=== PATIENT | female | born 1950 | race Caucasian/White ===

== ENCOUNTER → 2019-01-22 | Outpatient (CLI) | payer MEDICARE, OTHER ==
[2014-10-10 09:05] VITALS: BMI 32.1
[~2019-01-22] MED LIST: CELE100C79 PO; ESCI20TA38 PO; ESOM20CA31 PO; HYDR-389 PO; RIV10 PO; RIVA15TA PO; cholesterol PO
--- NOTE | 2019-01-23 14:37 | RADIOLOGY IMAGING REPORT ---
FACILITY: [facility] PATIENT NAME: RICKEY OWENS : [id number] MR: [id number] V: [id number] EXAM DATE: [id number] ORDERING PHYSICIAN: NICOLAS HERNANDEZ TECHNOLOGIST: Gina Colon PROCEDURE: BILATERAL DIGITAL SCREENING MAMMOGRAM WITH CAD ASSISTED INTERPRETATION & 3D TOMOSYNTHESIS. REASON FOR STUDY: Screening. FAMILY HISTORY OF BREAST CANCER: None. BREAST PROCEDURES/TREATMENTS: A benign surgical biopsy of the Right breast. COMPARISON: 01/09/14. VIEWS OBTAINED: Bilateral 2D & 3D full field CC & MLO projections. BREAST DENSITY: The breasts are almost entirely fatty. MAMMOGRAM FINDINGS: The parenchymal pattern has remained stable allowing for difference in mammographic technique & patient positioning. IMPRESSION: BIRADS 1: Negative. DIAGNOSTIC CATEGORY 1--NEGATIVE. RECOMMENDATIONS: ROUTINE MAMMOGRAM AND CLINICAL EVALUATION. Dictated by: Amanda Casillas M.D. on 01/22/2019 at 16:32 Transcribed by: ANA on 01/23/2019 at 8:50 Approved by: Amanda Casillas M.D. on 01/23/2019 at 14:32 [facility]
== END ==
LOC: MAMO 01:12
PROVIDERS: ATTEND Family Medicine
DX: Z12.31 Encounter for screening mammogram for malignant neoplasm of breast (principal)
CPT/HCPCS: 77063; 77067